=== PATIENT | female | born 1980 | race Caucasian/White ===

== ENCOUNTER 2022-11-20 16:26 | Emergency (ER) | payer BC, SELFPAY ==
--- NOTE | 2022-11-20 16:34 | ED.LOWEXIN ---
HPI - Extremity Injury (Lower) General Chief Complaint: Extremity Injury, Lower Stated Complaint: Left Leg Swelling/Pain Time Seen by Provider: 11/20/22 16:31 Source: patient Mode of arrival: ambulatory Limitations: no limitations History of Present Illness HPI Narrative: Sirs a 42-year-old female patient presenting to the clinic today with complaints of left leg swelling and pain times x2 days. She reports she has had some chills with mild redness and swelling to the left lower extremity. No known injury. No open wound. Patient states that she has been recently diagnosed with diabetes. She denies any fever, chest pain, or shortness of breath. Related Data Home Medications Medication Instructions Recorded Confirmed ergocalciferol (vitamin D2) 1,250 1,250 mcg PO WEEKLY 11/20/22 11/20/22 mcg (50,000 unit) capsule lisinopril 10 mg tablet 10 mg PO DAILY 11/20/22 11/20/22 metformin 500 mg tablet 500 mg PO BID 11/20/22 11/20/22 Allergies Allergy/AdvReac Type Severity Reaction Status Date / Time doxycycline Allergy Rash Verified 11/20/22 16:43 Review of Systems Review of Systems: Pertinent positives per HPI. Patient denies any fever, rash, headache, visual changes, dizziness, cough, runny nose, sore throat, shortness of breath, chest pain, palpitations, nausea, vomiting, diarrhea, constipation, abdominal pain, or any urinary issues. PMFSH Comments At the time of my signature, I reviewed and agree with the nursing past medical, surgical, social, and family history. There is no relevant family history pertinent to the patient complaint. Exam Narrative: General: Well-developed, well nourished, in no apparent distress Head: Normocephalic, atraumatic. Cardio: Regular rate and rhythm, s1 and s2 normal, no murmur appreciated. Resp: Clear to auscultation bilaterally, no rhonchi, rales, wheezing or rubs. Musculoskeletal: No deformity, tender to palpation over the lower left extremity just above the ankle, mild redness and swelling noted when compared to the right extremity, trace of edema to the left lower extremity, mild erythema noted when compared to the right extremity, grossly normal range of motion, muscle strength strong and equal, peripheral pulse strong, no cyanosis, normal gait and station Course Course Emergency Course: Portions of this record may have been created with voice recognition software. Level of Care: Express Care Visit Vital Signs Vital signs: Vital signs reviewed MDM - Extremity Injury (Lower) MDM Narrative Medical decision making narrative: At the time of visit patient is resting comfortably on exam table. I suspect patient may have early cellulitis of the left lower extremity. Prescriptions for Keflex and clindamycin was sent to the pharmacy. Supportive measures were discussed with the patient she voiced understanding discharge instructions and agrees to treatment plan. Differential Diagnosis Differential diagnosis: Likely other (Cellulitis, left leg injury, venous insufficiency, DVT) Discharge Plan Discharge Clinical Impression: Cellulitis of left leg Patient Disposition: Home, Self-Care Condition: Stable Instructions: Antibiotic Form, Cellulitis (ED) Additional Instructions: I suspect he may have early cellulitis of the left lower extremity. May take Tylenol/Motrin as needed for pain or fever Keep left lower extremity elevated as much as possible Take Keflex and clindamycin as prescribed Increase fluids and stay well hydrated Recommend taking an [id number] probiotic once daily-take this either 2 hours before 2 hours after taking antibiotics Go to the emergency room if you develop worsening of symptoms-high fever not controlled by Tylenol Motrin, increase in swelling, increasing redness, streaking, purulent drainage, confusion, weakness, lethargy, chest pain, shortness of breath, abdominal pain, nausea, vomiting, or diarrhea Prescriptions: New
[2022-11-20 16:38] VITALS: BP 133/88; PULSE 98; RESP 20; TEMP 36.3; O2SAT 100
== END 2022-11-20 16:58 | disposition home or self-care (01) ==
PROVIDERS: Emergency Provider Nurse Practitioner Family; PCP Family Medicine
DX: L03.116 Cellulitis of left lower limb (principal); I10 Essential (primary) hypertension; E11.9 Type 2 diabetes mellitus without complications; Z79.84 Long term (current) use of oral hypoglycemic drugs
CPT/HCPCS: 99213; G0463